=== PATIENT | female | born 1980 | race Caucasian/White ===

== ENCOUNTER 2017-03-20 04:32 | Emergency (ER) | payer OTHER ==
[~2017-03-20] VITALS: Ht 165.1 cm; Wt 83.5 kg
[~2017-03-20 04:32] MED LIST: IBUP-1542 PO
[2017-03-20 04:35] VITALS: Ht 165.1 cm; Wt 83.5 kg
[2017-03-20] MEDS ORDERED: AMOX500C2 PO (06:18)
[2017-03-20] MEDS ORDERED: IBUP-1542 PO (06:18)
--- NOTE | 2017-03-20 06:22 | ERD ---
ER Documentation Chief Complaint Date/Time DATE: 03/20/17 TIME: 06:20 Chief Complaint PT reports BLE pain for 2 weeks, bilateral arm pain and ST since last night HPI This 36-year-old female complains of sore throat for last 2 days. She feels a subjective fever as well. She has additional complaints of generalized body aches for the last 2 weeks. She denies any history of trauma. She denies any vomiting, abdominal pain, diarrhea, neck stiffness, rashes, cough or shortness of breath or chest pain. ROS All systems reviewed and are negative except as per history of present illness. Medications Home Meds Active Scripts Amoxicillin* (Amoxicillin*) 500 Mg Cap, 500 MG PO TID for 10 Days, CAP Prov:JESSIE MARTIN MD 03/20/17 Ibuprofen* (Motrin*) 600 Mg Tab, 600 MG PO Q6, #20 TAB Prov:JESSIE MARTIN MD 03/20/17 Ibuprofen* (Motrin*) 600 Mg Tab, 600 MG PO Q6, #20 TAB Prov:DIXON ADAMS PA-C 02/19/15 Allergies Allergies: Coded Allergies: No Known Drug Allergy (Verified Allergy, Unknown, 07/31/09) PMhx/Soc History of Surgery: Yes (GALLBLADDER. ) Anesthesia Reaction: No Hx Neurological Disorder: No Hx Respiratory Disorders: No Hx Cardiac Disorders: No Hx Psychiatric Problems: No Hx Miscellaneous Medical Probl: No Hx Alcohol Use: Yes Hx Substance Use: No Hx Tobacco Use: No Physical Exam Vitals Vital Signs Date Time Temp Pulse Resp B/P Pulse Ox O2 Delivery O2 Flow Rate FiO2 03/20/17 04:35 98.6 105 16 135/88 98 Physical Exam Const: [] Alert, [id number]. Head: Atraumatic Eyes: Normal Conjunctiva ENT: Normal External Ears, Nose and Mouth. Tonsils erythematous with exudate and are 3+. Neck: Full range of motion..~ No meningismus. Resp: Clear to auscultation bilaterally Cardio: Regular rate and rhythm, no murmurs Abd: Soft, non tender, non distended. Normal bowel sounds Skin: No petechiae or rashes Back: No midline or flank tenderness Ext: No cyanosis, or edema Neur: Awake and alert Psych: Normal Mood and Affect Procedures/MDM Patient presents with signs of exudative pharyngitis that signs of abscess or airway obstruction or sepsis.. She was also complaining of myalgias without evidence of significant pain, acute abnormalities on physical exam. She is well -appearing. She will be treated empirically with amoxicillin and ibuprofen primary care follow-up and return precautions. The patient was stable with no new complaints during the ER course. Clinically, there is no current evidence to suggest meningitis, sepsis, acute abdomen, pneumonia, acute coronary syndrome , pulmonary embolism, or any other emergent condition appearing to require further evaluation or hospitalization. The patient should certainly return for any new or worsening symptoms per the aftercare instructions. They should otherwise follow-up with her primary care doctor for reevaluation this week. Departure Diagnosis: Primary Impression: Myalgia Additional Impression: Pharyngitis Pharyngitis/tonsillitis etiology: unspecified etiology Qualified Code: J02.9 - Pharyngitis, unspecified etiology Condition: Stable Patient Instructions: Myalgias, Pharyngitis, Strep (Presumed) Additional Instructions: Cheque otro vez con terry doctor primario en el proximo griffin or regresa para mas o nueva simptomas. JESSIE MARTIN MD Mar 20, 2017 06:22
== END 2017-03-20 06:34 | disposition home or self-care (01) ==
LOC: FTE 04:32
DX: M79.1 Myalgia (principal)
CPT/HCPCS: 99283

== ENCOUNTER 2018-11-17 17:27 | Emergency (ER) | payer OTHER ==
[~2018-11-17] VITALS: Wt 89.0 kg
[~2018-11-17 17:27] MED LIST changes: +AMOX500C2 PO
[2018-11-17] MEDS ORDERED: KETOROLAC 30 MG INJ IM STA (19:29)
--- NOTE | 2018-11-17 19:35 | ERD ---
ER Documentation Chief Complaint Chief Complaint NAUSEA X 8 DAYS HPI Patient is a 38 years old female with past medical history of hepatitis is post treatment presenting to the clinic for nausea, vomiting, diarrhea since Monday. Patient admits to visiting [place] on November 10 and came back on Monday when she started experiencing the symptoms. Patient admits to hematochezia yesterday that has resolved as of now. Patient states the vomiting and diarrhea has resolved and the only thing she is experiencing her now is nausea. Reports getting 3 antibiotic intramuscular injection prior to leaving [place] followed by another intramuscular injection at an urgent care in [place]. Patient was seen by her PCP and want to do lab works and did not prescribe any more antibiotic. Patient reports that she started experiencing small amounts of vaginal bleeding as of yesterday and admits her LMP was November 06, 2018. Patient is also reporting of suprapubic pain and diffuse abdominal pain. ROS All systems reviewed and are negative except as per history of present illness. Medications Home Meds Active Scripts Loperamide Hcl* (Imodium*) 2 Mg Capsule, 2 MG PO .AFTER EA LOOSE BM PRN for DIARRHEA, #10 TAB Prov:THOMAS SOLIZ PA-C 11/17/18 Ondansetron Hcl* (Zofran*) 4 Mg Tablet, 4 MG PO Q8H PRN for NAUSEA AND/OR VOMITING, #30 TAB Prov:THOMAS SOLIZ PA-C 11/17/18 Ciprofloxacin Hcl* (Ciprofloxacin Hcl*) 250 Mg Tablet, 250 MG PO BID for 5 Days, #7 TAB Prov:THOMAS SOLIZ PA-C 11/17/18 Amoxicillin* (Amoxicillin*) 500 Mg Cap, 500 MG PO TID for 10 Days, CAP Prov:JESSIE MARTIN MD 03/20/17 Ibuprofen* (Motrin*) 600 Mg Tab, 600 MG PO Q6, #20 TAB Prov:JESSIE MARTIN MD 03/20/17 Ibuprofen* (Motrin*) 600 Mg Tab, 600 MG PO Q6, #20 TAB Prov:DIXON ADAMS PA-C 02/19/15 Allergies Allergies: Coded Allergies: No Known Drug Allergy (Verified Allergy, Unknown, 07/31/09) PMhx/Soc Medical and Surgical Hx: pt denies Medical Hx, pt denies Surgical Hx History of Surgery: Yes (GALLBLADDER. ) Anesthesia Reaction: No Hx Neurological Disorder: No Hx Respiratory Disorders: No Hx Cardiac Disorders: No Hx Psychiatric Problems: No Hx Miscellaneous Medical Probl: No Hx Alcohol Use: No Hx Substance Use: No Hx Tobacco Use: No Smoking Status: Never smoker Physical Exam Vitals Vital Signs Date Temp Pulse Resp B/P (MAP) Pulse Ox O2 O2 Flow FiO2 Time Delivery Rate 11/17/18 99.7 99 18 136/79 99 17:29 (98) Physical Exam Const: No acute distress Head: Atraumatic. Eyes: Normal Conjunctiva Resp: Clear to auscultation bilaterally Cardio: Regular rate and rhythm, no murmurs Abd: Soft, mild abdominal & suprapubic tenderness, non distended. Normal bowel sounds. Negative Trinidad sign, Rovsing sign, rebound tenderness. Skin: No petechiae or rashes Back: No midline or flank tenderness Neur: Awake and alert Psych: Normal Mood and Affect Results 24 hrs Laboratory Tests Test 11/17/18 19:43 11/17/18 19:50 Urine Color YELLOW Urine Clarity SLIGHTLY CLOUDY Urine pH 6.0 Urine Specific [place] 1.013 Urine Ketones NEGATIVE mg/dL Urine Nitrite NEGATIVE mg/dL Urine Bilirubin NEGATIVE mg/dL Urine Urobilinogen NEGATIVE mg/dL Urine Leukocyte Esterase TRACE Kelvin/ul Urine Microscopic RBC 1 /HPF Urine Microscopic WBC 3 /HPF Urine Squamous Epithelial Cells FEW /HPF Urine Bacteria FEW /HPF Urine Hemoglobin 2+ mg/dL Urine Glucose NEGATIVE mg/dL Urine Total Protein NEGATIVE mg/dl POC Beta HCG, Qualitative NEGATIVE Current Medications Medications Dose Sig/Bharathi Start Time Status Last (Trade) Ordered Route PRN Stop Time Admin Dose Reason Admin Ketorolac 30 mg ONCE STAT 11/17/18 DC 11/17/18 Tromethamine IM 19:29 11/17/18 19:57 (Toradol) 19:33 Ondansetron 4 mg ONCE STAT 11/17/18 DC HCl (Zofran IM 20:19 11/17/18 Inj) 20:27 Ondansetron 8 mg ONCE ONCE 11/17/18 DC 11/17/18 HCl (Zofran PO 20:30 11/17/18 20:32 Tab) 20:31 Ondansetron 4 mg STK-MED 11/17/18 DC HCl (Zofran ONCE ODT 20:30 11/17/18 Odt) 20:31 Ondansetron 4 mg STK-MED 11/17/18 DC HCl (Zofran ONCE ODT 20:32 11/17/18 Odt) 20:33 Procedures/MDM Patient was seen and evaluated for gastroenteritis and vaginal bleeding. Urinalysis showed 2+blood, 3+WBC, and trace leukocyte Estrace which is most significant for UTI. Patient's ultrasound is unremarkable. She is stable and ready for discharge with Cipro 250 mg p.o. twice daily X 5 days, Loperamide, Zofran. Departure Diagnosis: Primary Impression: UTI (urinary tract infection) Urinary tract infection type: site unspecified Hematuria presence: with hematuria Qualified Codes: N39.0 - Urinary tract infection, site not specified; R31.9 - Hematuria, unspecified Additional Impression: Gastroenteritis Condition: Stable Patient Instructions: Gastroenteritis, Bacterial (Child) (Adult) Referrals: [facility] Additional Instructions: Paciente aconseja volver a Departamento de urgencias inmediatamente para sntomas nuevos o que empeoran . Paciente aconseja posteriores con el PCP en 2-3 chao . Paciente verbaliza la comprehensin y est de acuerdo con el tratamiento y el curso de accin. Si el paciente no tiene ninguna de atencin primaria pueden seguir con [facility] [address] [place] [address] [facility] + [address] [address] THOMAS SOLIZ PA-C Nov 17, 2018 19:35
[2018-11-17] MEDS ORDERED: ONDANSETRON 4 MG INJ IM STA (20:19)
[2018-11-17] MEDS ORDERED: ONDANSETRON (ODT) 4 MG TAB ODT ONE ×2 (20:30→20:32)
[2018-11-17] MEDS ORDERED: ONDANSETRON 4 MG TAB PO ONE (20:30)
[2018-11-17] MEDS ORDERED: ONDA4TAB8 PO (21:04)
[2018-11-17] MEDS ORDERED: CIPR-193 PO (21:04)
[2018-11-17] MEDS ORDERED: LOPE2CAP PO (21:04)
[2018-11-17 21:12] VITALS: BP 120/65; PULSE 89; RESP 18
== END 2018-11-17 21:04 | disposition home or self-care (01) ==
LOC: FTE 17:27
DX: N39.0 Urinary tract infection, site not specified (principal); K52.9 Noninfective gastroenteritis and colitis, unspecified
CPT/HCPCS: 76856; 81001; 81025; 96372; J1885; Z7502; Z7610; J2405

== ENCOUNTER 2018-12-25 19:29 | Emergency (ER) | payer OTHER ==
[~2018-12-25] VITALS: Ht 160 cm; Wt 91.3 kg
[~2018-12-25 19:29] MED LIST changes: +CIPR-193 PO; +LOPE2CAP PO; +ONDA4TAB8 PO
[2018-12-25 19:36] VITALS: BP 137/73; PULSE 83; RESP 20; Ht 160 cm; Wt 91.3 kg
--- NOTE | 2018-12-25 19:47 | EN ---
Date/Time of Note Date/Time of Note DATE: 12/25/18 TIME: 19:46 ER Progress Note 38-year-old female presents for sore throat and fever x3 days. Fevers noted to be subjective. She denies any cough. Medical screening exam initiated and lab/imaging tests ordered. Rapid strep test ordered. Patient will be seen by another provider. RUBY ANDERSON DO Dec 25, 2018 19:47
[2018-12-25] MEDS ORDERED: IBUP-1561 PO (21:09)
[2018-12-25] MEDS ORDERED: ACET-141 PO (21:09)
--- NOTE | 2018-12-25 21:13 | ERD ---
ER Documentation Chief Complaint Chief Complaint ST X'S 4 DAYS HPI 38-year-old female with no significant past medical history presents for sore throat x3 days. She also has subjective fever. Denies cough or chest pain. No shortness of breath noted. She is eating drinking normally. She has been taking Motrin with only mild relief. No other modifying factors noted, no other treatments tried at home. ROS All systems reviewed and are negative except as per history of present illness. Medications Home Meds Active Scripts Acetaminophen* (Acetaminophen*) 500 MG Extra Strength Tablet, 500 MG PO Q4H PRN for PAIN AND OR ELEVATED TEMP, #30 TAB Prov:RUBY ANDERSON DO 12/25/18 Ibuprofen* (Motrin*) 400 Mg Tab, 400 MG PO Q6H PRN for PAIN AND OR ELEVATED TEMP, #30 TAB Prov:RUBY ANDERSON DO 12/25/18 Loperamide Hcl* (Imodium*) 2 Mg Capsule, 2 MG PO .AFTER EA LOOSE BM PRN for DIARRHEA, #10 TAB Prov:THOMAS SOLIZ PA-C 11/17/18 Ondansetron Hcl* (Zofran*) 4 Mg Tablet, 4 MG PO Q8H PRN for NAUSEA AND/OR VOMITING, #30 TAB Prov:THOMAS SOLIZ PA-C 11/17/18 Ciprofloxacin Hcl* (Ciprofloxacin Hcl*) 250 Mg Tablet, 250 MG PO BID for 5 Days, #7 TAB Prov:THOMAS SOLIZ PA-C 11/17/18 Amoxicillin* (Amoxicillin*) 500 Mg Cap, 500 MG PO TID for 10 Days, CAP Prov:JESSIE MARTIN MD 03/20/17 Ibuprofen* (Motrin*) 600 Mg Tab, 600 MG PO Q6, #20 TAB Prov:JESSIE MARTIN MD 03/20/17 Ibuprofen* (Motrin*) 600 Mg Tab, 600 MG PO Q6, #20 TAB Prov:DIXON ADAMS PA-C 02/19/15 Allergies Allergies: Coded Allergies: No Known Drug Allergy (Verified Allergy, Unknown, 07/31/09) PMhx/Soc Medical and Surgical Hx: pt denies Medical Hx History of Surgery: Yes (GALLBLADDER. ) Anesthesia Reaction: No Hx Neurological Disorder: No Hx Respiratory Disorders: No Hx Cardiac Disorders: No Hx Psychiatric Problems: No Hx Miscellaneous Medical Probl: No Hx Alcohol Use: No Hx Substance Use: No Hx Tobacco Use: No FmHx Family History: No coronary disease Physical Exam Vitals Vital Signs Date Temp Pulse Resp B/P (MAP) Pulse Ox O2 O2 Flow FiO2 Time Delivery Rate 12/25/18 98.6 83 20 137/73 97 19:36 (94) Physical Exam Const: No acute distress Head: Atraumatic Eyes: Normal Conjunctiva ENT: Normal External Ears, bilateral tympanic membrane intact without erythema or bulging noted, nose and Mouth examination normal, tonsils are mildly swollen with no exudate Neck: Full range of motion. No meningismus. Resp: Clear to auscultation bilaterally, no wheezing, rales, rhonchi Cardio: Regular rate and rhythm, no murmurs Skin: No petechiae or rashes Ext: No cyanosis, or edema Neur: Awake and alert Psych: Normal Mood and Affect Procedures/MDM Medical Decision Making: Differential diagnosis includes but not limited to upper respiratory infection, pneumonia, sepsis, meningitis, influenza, strep throat, viral pharyngitis. Patient appeared well on physical examination, nontoxic appearing. Lungs were clear to auscultation bilaterally. There is low suspicion for pneumonia, sepsis, meningitis. Patient had fever with sore throat with no cough, she meets 2 of 4 Cent[facility] criteria therefore rapid strep test was done. Rapid strep test negative Patient possibly has viral pharyngitis. Supportive measures discussed with patient who agrees with plan. Patient given prescription for supportive medication(s). Patient advised to follow up with PCP in 1-2 days. Patient advised to return to ED for new or worsening symptoms. Patient stable on discharge from the ED. Disclaimer: Inadvertent spelling and grammatical errors are likely due to EHR/dictation software use and do not reflect on the overall quality of patient care. Also, please note that the electronic time recorded on this note does not necessarily reflect the actual time of the patient encounter. Departure Diagnosis: Primary Impression: Sore throat Condition: Fair Patient Instructions: Self-Care for Sore Throats Referrals: COMMUNITY CLINICS YOU HAVE RECEIVED A MEDICAL SCREENING EXAM AND THE RESULTS INDICATE THAT YOU DO NOT HAVE A CONDITION THAT REQUIRES URGENT TREATMENT IN THE EMERGENCY DEPARTMENT. FURTHER EVALUATION AND TREATMENT OF YOUR CONDITION CAN WAIT UNTIL YOU ARE SEEN IN YOUR DOCTORS OFFICE WITHIN THE NEXT 1-2 DAYS. IT IS YOUR RESPONSIBILITY TO MAKE AN APPOINTMENT FOR FOLOW-UP CARE. IF YOU HAVE A PRIMARY DOCTOR --you should call your primary doctor and schedule an appointment IF YOU DO NOT HAVE A PRIMARY DOCTOR YOU CAN CALL OUR PHYSICIAN REFERRAL HOTLINE AT IF YOU CAN NOT AFFORD TO SEE A PHYSICIAN YOU CAN CHOSE FROM THE FOLLOWING [facility] [address] [facility] [address] [facility] [facility] [address] [facility] [address] [facility] [facility] [address] [facility]. [facility]. [address] Additional Instructions: Call your primary care doctor TOMORROW for an appointment during the next 1-2 days.See the doctor sooner or return here if your condition worsens before your appointment time. RUBY ANDERSON DO Dec 25, 2018 21:13
== END 2018-12-25 21:21 | disposition home or self-care (01) ==
LOC: FTE 19:29
DX: J02.9 Acute pharyngitis, unspecified (principal)
CPT/HCPCS: 87880; Z7502; 99283

== ENCOUNTER 2019-03-14 17:33 | Emergency (ER) | payer OTHER ==
[~2019-03-14] VITALS: Ht 160 cm; Wt 89.1 kg
[~2019-03-14 17:33] MED LIST changes: +ACET-141 PO; +ACET325T33 PO; +ACET500C5 PO; +IBUP-1561 PO
[2019-03-14 18:22] VITALS: Ht 160 cm; Wt 89.1 kg
[2019-03-14] MEDS ORDERED: ACETAMINOPHEN 325 MG TAB PO STA (19:37)
[2019-03-14 21:45] VITALS: BP 126/71; PULSE 73; RESP 16
== END 2019-03-14 21:45 | disposition home or self-care (01) ==
LOC: FTE 17:33
DX: O20.0 Threatened abortion (principal); Z3A.01 Less than 8 weeks gestation of pregnancy
CPT/HCPCS: 36415; 76801; 81001; 84702; 85025; 86900; 86901; 87086; Z7502; Z7610